=== PATIENT | female | born 1955 | race Caucasian/White ===

== ENCOUNTER → 2020-03-02 | Outpatient (CLI) | payer OTHER ==
[~2020-03-02] MED LIST: ALBU90OI6 INH; Amoxicillin500 MG PO; Cleocin HCl150 MG PO; Levaquin500 MG PO; Naprosyn500 MG PO; Prednisone20 MG PO; Pseudoephedrine30 MG PO; Zithromax250 MG PO
== END ==
LOC: LAB SHORT 13:15 → LAB 13:15
DX: H01.00B Unspecified blepharitis left eye, upper and lower eyelids (principal); H01.00A Unspecified blepharitis right eye, upper and lower eyelids
CPT/HCPCS: 87070; 87077; 87147; 87186; 87205